=== PATIENT | male | born 1985 | race Caucasian/White ===

== ENCOUNTER 2025-01-19 03:45 | Emergency (ER) | payer BC ==
[~2025-01-19] VITALS: Ht 160 cm; Wt 61.0 kg
[2025-01-19 03:51] VITALS: BP 156/95; PULSE 62; RESP 16; TEMP 36.6; O2SAT 99
== END 2025-01-19 05:56 | disposition left against medical advice (07) ==
LOC: ER 03:45
DX: R04.0 Epistaxis (principal); Z53.21 Procedure and treatment not carried out due to patient leaving prior to being seen by health care provider

== ENCOUNTER 2025-02-17 19:38 | Emergency (ER) | payer BC ==
[~2025-02-17] VITALS: Ht 160 cm; Wt 64.7 kg
[2025-02-17 19:49] VITALS: O2SAT 99
[2025-02-17 21:45] VITALS: BP 139/87; PULSE 70; RESP 16; TEMP 36.7; O2SAT 99
== END 2025-02-17 22:14 | disposition home or self-care (01) ==
LOC: ER 19:38
DX: J34.89 Other specified disorders of nose and nasal sinuses (principal)
CPT/HCPCS: 99281